=== PATIENT | female | born 1985 | race American Indian/Alaskan Native ===

== ENCOUNTER 2019-04-03 15:32 | Emergency (ER) | payer BC, OTHER ==
[2019-04-03 15:38] VITALS: BP 131/79
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
== END 2019-04-03 17:04 | disposition home or self-care (01) ==
LOC: ED 15:32
DX: M79.601 Pain in right arm (principal); M25.552 Pain in left hip; F17.200 Nicotine dependence, unspecified, uncomplicated; V49.49XA Driver injured in collision with other motor vehicles in traffic accident, initial encounter; Y93.89 Activity, other specified; Y92.89 Other specified places as the place of occurrence of the external cause; Y99.8 Other external cause status
CPT/HCPCS: 99283